=== PATIENT | female | born 1980 | race Caucasian/White ===

== ENCOUNTER 2017-08-09 13:09 | Emergency (ER) | payer OTHER ==
[2017-08-09] MEDS: SOD CHLORIDE 0.9% 1,000 ML IV (14:39)
[2017-08-09] MEDS: KETOROLAC 30 MG INJ IV (14:39)
[2017-08-09] MEDS: DIPHENHYDRAMINE 50 MG INJ IV (14:39)
[2017-08-09] MEDS: ONDANSETRON 4 MG INJ IV (14:39)
== END 2017-08-09 16:00 | disposition home or self-care (01) ==
LOC: FTE 13:09
DX: R51 Headache (principal); R42 Dizziness and giddiness
CPT/HCPCS: 93005; 96374; 96375; 99284-25